=== PATIENT | female | born 1995 | race Caucasian/White ===

== ENCOUNTER 2016-11-01 09:28 | Emergency (ER) | payer OTHER ==
[~2016-11-01 09:28] MED LIST: DDAVP0.2 MG PO; DICLOFENAC SODI50 MG PO; DOCUSATE SODIUM; HYDROCORTISONE; IMITREX PO; LOTRISONE CREAM45 GM TOP; NO MEDICATIONS; ROBAXIN500 MG PO; TYLENOL #3 PO
[2016-11-01 09:32] LABS: INFLUENZA A NEG (NEG); INFLUENZA B NEG (NEG)
== END 2016-11-01 09:48 | disposition home or self-care (01) ==
LOC: CFTX 09:28
PROVIDERS: Physician Assistant
DX: R11.2 Nausea with vomiting, unspecified (principal)
CPT/HCPCS: 87651; 87804; 99283

== ENCOUNTER 2016-11-19 19:57 | Emergency (ER) | payer OTHER ==
--- NOTE | ~2016-11-19 | CR142 ---
[facility] A Service of [facility] & [facility] RADIOLOGY TEXT RESULTS PATIENT: PARAMJIT HARRY LOCATION: CFTX : [birth year] UNIT #: [id number] AGE: [address]: BOOM HUFFMAN APRN SEX: F ORDER DR: [id number] [facility] [address] [place], [place] [address] [id number] E MR#: [id number] Acc #: [id number] NAME: PARAMJIT HARRY : 1995 SEX: F STUDY DATE/TIME: 11/19/2016 17:46 UNIT: CFTX ROOM: STUDY DESCRIPTION: CR Hand Min 3 Views Rt Attending Physician: Boom Huffman Aprn Ordering Physician: Ed Keith Chilel M.D. Primary Care Physician: [facility] MEDICAL IMAGING REPORT This report is preliminary unless electronic signature is present EXAM Right hand, three views. HISTORY Fell yesterday. Hand pain and bruising. FINDINGS AP, lateral, and oblique projections of the right hand show good mineralization with normal carpal, metacarpal, and phalangeal anatomy without indication of fracture, dislocation, or soft tissue radiopaque foreign body. IMPRESSION Normal right hand. Dictated by... Linwood Singh M.D. THIS IS AN ELECTRONICALLY VERIFIED REPORT Linwood Singh M.D. at 11/20/2016 10:05 AM CONSTANTINO/aryan TD: 11/20/2016 08:52 JOB #: [id number] MEDICAL IMAGING REPORT Page 1 of 1 COPY
--- NOTE | ~2016-11-19 | CR20 ---
[facility] A Service of [facility] & [facility] RADIOLOGY TEXT RESULTS PATIENT: PARAMJIT HARRY LOCATION: CFTX : [birth year] UNIT #: [id number] AGE: [address]: BOOM HUFFMAN APRN SEX: F ORDER DR: [id number] [facility] [address] [place], [place] [address] [id number] E MR#: [id number] Acc #: [id number] NAME: PARAMJIT HARRY : 1995 SEX: F STUDY DATE/TIME: 11/19/2016 17:39 UNIT: CFTX ROOM: STUDY DESCRIPTION: CR Ankle Min 3 Views Lt Attending Physician: Boom Huffman Aprn Ordering Physician: Ed Doctor [id number] [facility] Primary Care Physician: [facility] MEDICAL IMAGING REPORT This report is preliminary unless electronic signature is present EXAM Left ankle, three views. HISTORY Ankle pain, bruising, fell yesterday. FINDINGS AP, lateral, and oblique projections of the ankle show satisfactory integrity of the joint mortise with a smooth articular surface. There is no identifiable fracture, dislocation, or radiopaque foreign body. IMPRESSION Normal left ankle. Dictated by... Linwood Singh M.D. THIS IS AN ELECTRONICALLY VERIFIED REPORT Linwood Singh M.D. at 11/20/2016 10:05 AM Bennett TD: 11/20/2016 08:55 JOB #: [id number] MEDICAL IMAGING REPORT Page 1 of 1 COPY
--- NOTE | ~2016-11-19 | CR126 ---
[facility] A Service of [facility] RADIOLOGY TEXT RESULTS PATIENT: PARAMJIT HARRY LOCATION: CFTX : [birth year] UNIT #: [id number] AGE: [address]: BOOM HUFFMAN APRN SEX: F ORDER DR: [id number] [facility] [address]. [place], [place] [address] [id number] E MR#: [id number] Acc #: [id number] NAME: PARAMJIT HARRY : 1995 SEX: F STUDY DATE/TIME: 11/19/2016 17:41 UNIT: CFTX ROOM: STUDY DESCRIPTION: CR Foot Complete Min 3 View Lt Attending Physician: Boom Huffman Aprn Ordering Physician: Ed Doctor [id number] [facility] Primary Care Physician: [facility] MEDICAL IMAGING REPORT This report is preliminary unless electronic signature is present EXAM Left foot 3 views HISTORY Fell yesterday, pain and bruising. FINDINGS The tarsal, metatarsal, and phalangeal elements are all anatomically normal in position and alignment. There are no articular defects. No fractures or radiopaque foreign bodies in the soft tissues are apparent. IMPRESSION Normal left foot. Dictated by... Linwood Singh M.D. THIS IS AN ELECTRONICALLY VERIFIED REPORT Linwood Singh M.D. at 11/20/2016 10:05 AM Maribel TD: 11/20/2016 08:50 JOB #: [id number] MEDICAL IMAGING REPORT Page 1 of 1 COPY
== END 2016-11-19 20:13 | disposition home or self-care (01) ==
LOC: CED 19:57
DX: S93.402A Sprain of unspecified ligament of left ankle, initial encounter (principal); S63.91XA Sprain of unspecified part of right wrist and hand, initial encounter; Z98.890 Other specified postprocedural states; W01.0XXA Fall on same level from slipping, tripping and stumbling without subsequent striking against object, initial encounter; Y92.830 Public park as the place of occurrence of the external cause
CPT/HCPCS: 29280; 29540; 73130; 73610; 73630; 99283; 99284